=== PATIENT | male | born 1975 | race Caucasian/White ===

== ENCOUNTER 2021-05-25 17:37 | Emergency (ER) | payer MEDICAID ==
[~2021-05-25] VITALS: Ht 167.6 cm; Wt 117.9 kg
[2021-05-25 17:44] VITALS: BP 133/94
--- NOTE | 2021-05-25 17:54 | NUR ---
PATIENT AMBULATED TO BED 12
--- NOTE | 2021-05-25 17:57 | NUR ---
NAE AT BEDSIDE
--- NOTE | 2021-05-25 17:57 | NUR ---
45/M BIB C/O OF FALLING AND HITTING THE HEAD ON THE BACK OF A TRAILER. PAIN IS A 9/10 AT THIS TIME. PMHX DENIES MEDICATION DENIES NKA
[2021-05-25] MEDS ORDERED: LIDOCAINE/EPI 1% 1:100000 20 ML VIAL INJ ONE (18:00)
[2021-05-25] MEDS ORDERED: BACITRACIN OINT 500 UNITS/GM PKT TP ONE (18:00)
[2021-05-25] MEDS ORDERED: ACETAMINOPHEN EXTRA STRENGTH 500 MG TAB PO ONE (18:00)
--- NOTE | 2021-05-25 18:13 | NUR ---
pt's lac cleaned with normal saline and lac tray set up at bed side. pa notified.
--- NOTE | 2021-05-25 18:35 | NUR ---
NAE AT BEDSIDE
[2021-05-25] MEDS ORDERED: BACI1PAC6 TP (18:58)
[2021-05-25] MEDS ORDERED: ACET-10509 PO (18:58)
--- NOTE | 2021-05-25 19:06 | NUR ---
The patient's care was reviewed and supervised by Dalia Mckeon RN.
--- NOTE | 2021-05-25 19:07 | NUR ---
Patient discharged with v/s stable. Written and verbal after care instructions given and explained. Patient verbalized understanding. Ambulatory with steady gait. All questions addressed prior to discharge. Advised to follow up with PMD.
== END 2021-05-25 19:07 | disposition home or self-care (01) ==
LOC: MED 17:37
DX: S01.81XA Laceration without foreign body of other part of head, initial encounter (principal); Z79.899 Other long term (current) drug therapy; W01.10XA Fall on same level from slipping, tripping and stumbling with subsequent striking against unspecified object, initial encounter; Y93.01 Activity, walking, marching and hiking; Y92.89 Other specified places as the place of occurrence of the external cause; Y99.8 Other external cause status
CPT/HCPCS: 12014; 90471; 90715; 99284; J2001

== ENCOUNTER 2021-05-27 17:02 | Emergency (ER) | payer MEDICAID ==
[~2021-05-27] VITALS: Ht 165.1 cm; Wt 91.2 kg
[~2021-05-27 17:02] MED LIST: ACET-10509 PO; BACI1PAC6 TP
[2021-05-27 17:11] VITALS: BP 142/49
[2021-05-27 17:42] VITALS: BP 142/49
--- NOTE | 2021-05-27 17:42 | NUR ---
NO NURSING INTERVENTIONS PROVIDED
--- NOTE | 2021-05-27 17:42 | NUR ---
Patient discharged with v/s stable. Written and verbal after care instructions ABOUT LACERATION CARE PRINTED, PATIENT LEFT WITHOUT D/C PAPERS. Ambulatory with steady gait.
== END 2021-05-27 17:42 | disposition home or self-care (01) ==
LOC: MED 17:02
DX: S01.111D Laceration without foreign body of right eyelid and periocular area, subsequent encounter (principal); Z48.00 Encounter for change or removal of nonsurgical wound dressing; X58.XXXD Exposure to other specified factors, subsequent encounter
CPT/HCPCS: 99282

== ENCOUNTER 2021-06-03 11:02 | Emergency (ER) | payer MEDICAID ==
[~2021-06-03] VITALS: Ht 162.6 cm; Wt 91.2 kg
[2021-06-03 11:07] VITALS: BP 166/85
--- NOTE | 2021-06-03 11:58 | NUR ---
PT AMBULATED TO CHAIR A.
--- NOTE | 2021-06-03 12:16 | NUR ---
Patient discharged with v/s stable. Written and verbal after care instructions ABOUT SUTURE REMOVAL given and explained. Patient verbalized understanding. Ambulatory with steady gait. All questions addressed prior to discharge. Advised to follow up with PMD. PT SEEN AND D/C BY LAI POSADA, NO NURSING INTERVENTIONS PROVIDED
== END 2021-06-03 12:16 | disposition home or self-care (01) ==
LOC: MED 11:02
DX: S01.111D Laceration without foreign body of right eyelid and periocular area, subsequent encounter (principal); Z48.00 Encounter for change or removal of nonsurgical wound dressing; X58.XXXD Exposure to other specified factors, subsequent encounter
CPT/HCPCS: 99281